=== PATIENT | male | born 1985 | race Two or more races ===

== ENCOUNTER 2021-02-11 13:33 | Emergency (ER) | payer SELFPAY ==
[2021-02-11 15:09] LABS: BASOPHIL 0.5 % (0-2); HCT 45.3 % (42.0-52.0); HGB 15.4 g/dl (13.2-18.0); LYMPHOCYTE 26.7 % (15-48); MCH 30.7 pg (25.0-31.0); MCV 90.4 fL (78.0-100.0); MONOCYTE 11.1 % (0-12); MPV 10.4 fL (6.0-9.5); NRBC 0; PLT 248 K/uL (150-400); RBC 5.01 M/uL (4.70-6.00); RDW 12.9 % (11.5-14.0); WBC 8.1 K/uL (4.0-10.5)
[2021-02-11 15:26] LABS: BILIRUBIN - TOTAL 0.4 mg/dL (0.2-1.0); BUN/CREAT RATIO (CALC) 15.2 RATIO; CREATININE 0.99 mg/dL (0.67-1.17); GLOBULIN (CALCULATION) 3.5 g/dL; POTASSIUM 3.8 mmol/L (3.5-5.1); TOTAL PROTEIN 7.5 g/dL (6.4-8.2)
== END 2021-02-11 20:45 | disposition home or self-care (01) ==
LOC: FER 13:33
PROVIDERS: Internal Medicine
DX: R07.89 Other chest pain (principal); Z20.822 Contact with and (suspected) exposure to COVID-19
CPT/HCPCS: 36415; 80053; 83735; 84484; 85025; 85379; 93005; U0002